=== PATIENT | female | born 1960 | race Caucasian/White ===

== ENCOUNTER 2017-10-30 05:15 | Day surgery (SDC) | payer MEDICARE ==
[2017-10-29 11:31] LABS: BASOPHILS 0.9 % (0-2); EOSINOPHILS 0.9 % (0-7); HEMATOCRIT 42.8 % (36.0-48.0); HEMOGLOBIN 14.6 g/dL (12-16); IMMATURE GRANULOCYTES 0.2 % (0-5); LYMPHOCYTES 27.7 % (15-50); MCH 30.3 pg (26.0-34.0); MCHC 34.1 g/dL (31.0-37.0); MCV 88.8 fL (80.0-100.0); MEAN PLATELET VOLUME 10.9 fL (7.4-10.4); MONOCYTES 8.2 % (2-11); NEUTROPHILS 62.1 % (40-80); PLATELET COUNT 201 10x3/uL (130-400); RBC 4.82 10x6/uL (4.00-5.40); WBC 5.6 10x3/uL (4.8-10.8)
[2017-10-29 11:45] LABS: APTT 29.6 SECONDS (22.8-39.4); INR 0.99 (0.85-1.17); PROTIME 12.7 SECONDS (11.6-15.0)
[~2017-10-30] VITALS: Ht 167.6 cm; Wt 78.5 kg
[2017-10-30] MEDS ORDERED: FIBER THERAPY1368 GM PO (06:09)
[2017-10-30] MEDS ORDERED: CALCIUM 600 +1 EAC3 PO (06:09)
[2017-10-30] MEDS ORDERED: MULTI-DAY VITAM1 TAB PO (06:09)
[2017-10-30] MEDS ORDERED: NEXIUM20 MG PO (06:10)
[2017-10-30] MEDS ORDERED: LIPITOR20 MG PO (06:10)
[2017-10-30] MEDS ORDERED: FISH OIL 1,2001 CAP PO (06:11)
[2017-10-30] MEDS ORDERED: ZYRTEC10 MG PO (06:11)
[2017-10-30 06:12] VITALS: BP 110/72; Ht 167.6 cm; Wt 78.5 kg
--- NOTE | 2017-10-30 09:41 | NUR ---
0830-RECD FROM PACU. ALERT. R ANKLE DRESSING DRY AND INTACT. RESP WITH EASE. DENIES PAIN. IV PATENT. 0900-FULL LIQUIDS SERVED. 0930-UP TO BATHROOM, VOIDS FREELY. IV D/C.
--- NOTE | 2017-10-30 09:54 | NUR ---
0923--DISCHARGE INSTRUCTIONS GIVEN, PT VERBALIZES UNDERSTANDING. KENDY RAMIREZ [id number]--PT OFF UNIT VIA WC. KENDY RAMIREZ
--- NOTE | 2017-11-06 13:40 | OP ---
PATIENT NAME: CARLEE BARON MEDICAL RECORD: [id number] :56 LOCATION:D[facility] ADMISSION DATE: SURGEON: SELVIN DOMINGUEZ DPM DATE OF OPERATION: 10/30/2017 PREOPERATIVE DIAGNOSIS: Pain in right ankle. POSTOPERATIVE DIAGNOSIS: Mild capsulitis, synovitis of right ankle with anterior lipping of the distal tibia. PROCEDURE: Right ankle arthroscopy. ANESTHESIA: General with local infiltrate utilizing lidocaine and Marcaine plain, 18 cc total around the right ankle as well as an intraarticular injection of some of the anesthetic. HEMOSTASIS: Right thigh tourniquet at 350 mmHg. PREOPERATIVE DETAILS: The patient was taken to the OR, placed on the operating table in a supine position. This was followed by induction of general anesthesia and infiltration of local anesthetic. The right extremity was then prepped and draped in usual aseptic technique followed by exsanguination of extremity and inflation of tourniquet. A 15 blade was used to make a small stab incision over the anterior lateral shoulder of the right ankle. The incision was deepened down bluntly through subcutaneous tissue and the joint capsule was punctured with a trocar and cannula. The camera was introduced. Initial inspection of the joint showed mild synovitis of the joint capsulitis as well as anterior lipping of the distal tibia, small stab incision was made over the medial anterior shoulder of the right ankle. Blunt dissection was carried down to the joint capsule which was punctured with a trocar and the synovial shaver was introduced in the medial portal and the debridement began with the hypertrophied capsule as well as the synovitis. The portals were switched and continued debridement of the synovitic material continued, the camera was also used to look at the medial and lateral gutters, ligaments were intact. The anterior drawer test was performed with the direct visualization, which was negative as well as inversion stress which was negative. Following the debridement with the synovial shaver, a bone debrider was introduced in the lateral portal with the camera medial portal and the anterior distal lipping was removed with a bone debrider, synovial shaver was then reintroduced and the chondromalacial material on the distal anterior tibia was excised. The wound was flushed with irrigation through the camera portal and the camera and the debrider were removed. The wounds were closed with simple interrupted nylon. Adaptic, 4 x 4, and Conform were used to dress the wound followed by Coban. Tourniquet was deflated. POSTOPERATIVE DETAILS: The patient tolerated the procedure well and left the OR with vital signs stable and vascular status at preoperative levels. The patient was transported to recovery per anesthesia in stable condition. 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
== END 2017-10-30 09:55 | disposition home or self-care (01) ==
LOC: D.OPS 05:15 → D.PAN 07:00 → D.OPS 07:00
PROVIDERS: Anesthesiology
DX: M25.571 Pain in right ankle and joints of right foot (principal); M65.9 Synovitis and tenosynovitis, unspecified; K21.9 Gastro-esophageal reflux disease without esophagitis; K58.9 Irritable bowel syndrome, unspecified; Z01.812 Encounter for preprocedural laboratory examination